=== PATIENT | female | born 1935 | race Caucasian/White ===

== ENCOUNTER 2018-09-06 17:51 | Inpatient (IN) | payer MEDICARE, BC ==
[~2018-09-06] VITALS: Ht 165.1 cm; Wt 97.7 kg
[2018-09-06] MEDS ORDERED: normal saline 1000ML IV soln IVB ONE ×2 (18:15→19:25)
[2018-09-06] MEDS ORDERED: ondansetron/PF 4mg/2ml inj IV ONE (18:15)
[2018-09-06 18:53] LABS: PARTIAL THROMBOPLASTIN TIME 25 SECONDS (22-32); PROTHROMBIN TIME 10.1 SECONDS (9.0-12.0)
[2018-09-06 18:56] LABS: ALANINE AMINOTRANSFERASE 21 U/L (12-78); ALBUMIN 3.7 G/DL (3.4-5.0); ALBUMIN/GLOBULIN RATIO 0.9 (1.1-1.5); ALKALINE PHOSPHATASE 69 IU/L (46-116); ANION GAP 19 (8-16); ASPARTATE AMINO TRANSFERASE 32 U/L (10-37); BILIRUBIN,TOTAL 0.3 MG/DL (0.1-1.0); BLOOD UREA NITROGEN 27 MG/DL (7-18); BUN/CREATININE RATIO 20.6 (6.6-38.0); CALCIUM 9.1 MG/DL (8.5-10.1); CHLORIDE 98 MMOL/L (99-107); CREATININE 1.31 MG/DL (0.40-0.90); GLUCOSE 185 MG/DL (70-104); POTASSIUM 3.4 MMOL/L (3.5-5.1); SODIUM 138 MMOL/L (135-145); TOTAL CARBON DIOXIDE 21.4 MMOL/L (24-32); TOTAL PROTEIN 7.7 G/DL (6.4-8.2); eGFR 39 ML/MIN
[2018-09-06 18:57] LABS: BASOPHILS % (AUTO) 0.3 % (0-1); EOSINOPHILS # (AUTO) 0.2 X10'3 (0-0.9); EOSINOPHILS % (AUTO) 1.7 % (0-6); HEMATOCRIT 40.7 % (35.0-45.0); HEMOGLOBIN 13.2 g/dl (12.0-16.0); LYMPHOCYTES # (AUTO) 2.5 X10'3 (1.1-4.8); MEAN CORPUSCULAR HEMOGLOBIN 27.6 PG (27.0-31.0); MEAN CORPUSCULAR HGB CONC 32.5 % (33.0-36.5); MEAN CORPUSCULAR VOLUME 85.1 FL (78-98); MEAN PLATELET VOLUME 9.4 FL (7.4-10.4); MONOCYTES # (AUTO) 0.6 X10'3 (0-0.9); MONOCYTES % (AUTO) 5.6 % (2-12); NEUTROPHILS # (AUTO) 7.4 X10'3 (1.8-7.7); NEUTROPHILS % (AUTO) 69.4 % (42-75); PLATELET COUNT 320 X10'3 (140-440); RED BLOOD COUNT 4.78 X10'6 (4.20-5.60); RED CELL DISTRIBUTION WIDTH 14.4 % (11.5-14.5); WHITE BLOOD COUNT 10.7 X10'3 (4.5-11.0)
[2018-09-06 19:02] LABS: MAGNESIUM 1.9 MG/DL (1.5-2.4)
[2018-09-06 19:03] LABS: TROPONIN I 0.62 NG/ML (0.0-0.05)
[2018-09-06] MEDS ORDERED: enoxaparin 100mg/ml syringe SUBCUT ONE (19:05)
[2018-09-06] MEDS ORDERED: aspirin 325mg tablet PO ONE (19:05)
[2018-09-06] MEDS ORDERED: diphenhydrAMINE 50 mg/ml inj IV ONE (19:40)
[2018-09-06] MEDS ORDERED: metoclopramide 5 mg/ml inj IV ONE (19:40)
[2018-09-06 19:41] LABS: CLARITY,URINE CLEAR (Clear); COLOR,URINE YELLOW (Yellow); GLUCOSE, URINE NEGATIVE (Neg); KETONES,URINE >=80 mg/dl (Neg); LEUKOCYTE ESTERASE ,URINE NEGATIVE (Neg); NITRITES, URINE NEGATIVE (Neg); OCCULT BLOOD,URINE SMALL (Neg); PROTEIN,URINE TRACE mg/dl (Neg); UA COLLECTION TYPE STRAIGHT CATH; UROBILINOGEN,URINE 0.2 E.U/dL (0.2-1.0)
[2018-09-06] MEDS ORDERED: LISI1TAB9 PO (19:42)
[2018-09-06 20:01] LABS: BACTERIA,URINE NONE SEEN /HPF (Neg); RBC,URINE 0-2 /HPF (0-2); WBC,URINE NONE SEEN /HPF (0-4)
[2018-09-06 20:02] LABS: MUCUS STRANDS NONE SEEN /LPF (Neg); SQUAMOUS EPITHELIAL CELL,UR FEW /LPF (FEW); TRANSITIONAL EPI CELLS,URINE FEW /HPF
[2018-09-06 20:49] LABS: D-DIMER 4.05 MG/L FEU (0-0.50)
[2018-09-06] MEDS ORDERED: iohexol 350MG/ML 100ml bottle IV ONE (21:07)
[2018-09-06] MEDS ORDERED: morphine 2 MG/ML inj. syringe IV ONE (21:55)
[2018-09-06] MEDS ORDERED: ondansetron/PF 4mg/2ml inj IV PRN (23:30)
[2018-09-06] MEDS ORDERED: mag hydrox/Alum hydrox/simeth 30ml oral suspension PO PRN (23:30)
[2018-09-06] MEDS ORDERED: acetaminophen 325mg tablet PO PRN (23:30)
[2018-09-06] MEDS ORDERED: HYDROcodone/acetaminophen 10/325mg tab PO PRN (23:30)
[2018-09-06] MEDS ORDERED: HYDROcodone/acetaminophen 5mg/325mg tablet PO PRN (23:30)
[2018-09-06] MEDS ORDERED: magnesium hydroxide 30ml (MOM) UD suspension PO PRN (23:30)
[2018-09-06] MEDS ORDERED: heparin 25,000 UNIT/250ml bag 250 ML IV SCH (23:31)
[2018-09-06] MEDS ORDERED: heparin 10,000 units/1 ML INJ IV PRN (23:35)
[2018-09-06] MEDS ORDERED: metoprolol tartrate 1mg/ml inj IV ONE (23:35)
[2018-09-06] MEDS ORDERED: heparin 10,000 units/1 ML INJ IV ONE (23:35)
[2018-09-07] MEDS: normal saline 1000ml 1,000 ML IV SCH ×2 (00:05→19:36)
[2018-09-07 00:48] LABS: BASOPHILS % (AUTO) 0 % (0-1); EOSINOPHILS # (AUTO) 0.2 X10'3 (0-0.9); EOSINOPHILS % (AUTO) 1.7 % (0-6); HEMATOCRIT 39.1 % (35.0-45.0); HEMOGLOBIN 12.8 g/dl (12.0-16.0); LYMPHOCYTES # (AUTO) 0.8 X10'3 (1.1-4.8); LYMPHOCYTES % (AUTO) 5.5 % (21-51); MEAN CORPUSCULAR HGB CONC 32.7 % (33.0-36.5); MEAN CORPUSCULAR VOLUME 85.6 FL (78-98); MEAN PLATELET VOLUME 9.4 FL (7.4-10.4); MONOCYTES # (AUTO) 0.5 X10'3 (0-0.9); MONOCYTES % (AUTO) 3.5 % (2-12); NEUTROPHILS # (AUTO) 12.8 X10'3 (1.8-7.7); NEUTROPHILS % (AUTO) 89.3 % (42-75); PLATELET COUNT 288 X10'3 (140-440); RED BLOOD COUNT 4.57 X10'6 (4.20-5.60); RED CELL DISTRIBUTION WIDTH 14.2 % (11.5-14.5); WHITE BLOOD COUNT 14.3 X10'3 (4.5-11.0)
--- NOTE | 2018-09-07 01:49 | NUR ---
placed on hospital bed
[2018-09-07 04:35] VITALS: BP 122/70
--- NOTE | 2018-09-07 04:35 | NUR ---
pt arrived from ER in stable condition, arrived via hospital bed, VS taken and stable, no c/o chest pain at this time, currently on 2L NC, A&O. pt educated application analyst light use and not to get out of bed without assistance. all belongings accompanied pt and at bedside. will review orders and implement as necessary.
[2018-09-07 05:02] LABS: ALANINE AMINOTRANSFERASE 21 U/L (12-78); ALBUMIN 2.9 G/DL (3.4-5.0); ALBUMIN/GLOBULIN RATIO 0.7 (1.1-1.5); ALKALINE PHOSPHATASE 71 IU/L (46-116); ANION GAP 14 (8-16); ASPARTATE AMINO TRANSFERASE 37 U/L (10-37); BILIRUBIN,TOTAL 0.3 MG/DL (0.1-1.0); BLOOD UREA NITROGEN 26 MG/DL (7-18); BUN/CREATININE RATIO 21.7 (6.6-38.0); CHLORIDE 102 MMOL/L (99-107); GLUCOSE 135 MG/DL (70-104); POTASSIUM 4.5 MMOL/L (3.5-5.1); SODIUM 140 MMOL/L (135-145); TOTAL CARBON DIOXIDE 24.5 MMOL/L (24-32); TOTAL PROTEIN 6.9 G/DL (6.4-8.2); eGFR 43 ML/MIN
[2018-09-07 05:06] LABS: CHOL/HDL RATIO 3.1 (0.00-4.99); CHOLESTEROL 274 MG/DL (0-200); HDL CHOLESTEROL 87 MG/DL (35-60); LDL CHOLESTEROL 180 MG/DL (50-100); TRIGLYCERIDES 37 MG/DL (20-135)
[2018-09-07 05:29] LABS: BASOPHILS % (AUTO) 0 % (0-1); EOSINOPHILS # (AUTO) 0.1 X10'3 (0-0.9); EOSINOPHILS % (AUTO) 1.5 % (0-6); LYMPHOCYTES # (AUTO) 0.8 X10'3 (1.1-4.8); LYMPHOCYTES % (AUTO) 8.6 % (21-51); MEAN CORPUSCULAR HEMOGLOBIN 27.7 PG (27.0-31.0); MEAN CORPUSCULAR HGB CONC 32.5 % (33.0-36.5); MEAN CORPUSCULAR VOLUME 85.4 FL (78-98); MEAN PLATELET VOLUME 9.6 FL (7.4-10.4); MONOCYTES # (AUTO) 0.4 X10'3 (0-0.9); MONOCYTES % (AUTO) 4.5 % (2-12); NEUTROPHILS # (AUTO) 8.4 X10'3 (1.8-7.7); NEUTROPHILS % (AUTO) 85.4 % (42-75); PLATELET COUNT 295 X10'3 (140-440); RED BLOOD COUNT 4.68 X10'6 (4.20-5.60); RED CELL DISTRIBUTION WIDTH 14.6 % (11.5-14.5); WHITE BLOOD COUNT 9.8 X10'3 (4.5-11.0)
[2018-09-07 05:29] LABS: TOTAL CELLS COUNTED 100
[2018-09-07 05:30] LABS: PLATELET ESTIMATE NORMAL
--- NOTE | 2018-09-07 05:30 | NUR ---
spoke with Dr Alex re pt's next trop back at 4.75, pt asymptomatic and no chest pain, VSS and currently on heparin gtt. no new orders at this time. will keep pt NPO should they decide to pursue PCI today.
[2018-09-07 06:00] VITALS: BP 134/68
--- NOTE | 2018-09-07 06:30 | NUR ---
Patient in room PCU 3016. I have received report from Jennifer MCGHEE and had the opportunity to ask questions and assume patient care. Patient resting comfortably in bed. Patient complaining of nausea. Will continue to monitor.
--- NOTE | 2018-09-07 06:31 | NUR ---
Problems reprioritized. Patient report given, questions answered & plan of care reviewed with Cookie MCGHEE.
[2018-09-07] MEDS ORDERED: metoprolol tartrate 50mg tablet PO SCH (08:00)
--- NOTE | 2018-09-07 08:27 | NUR ---
Paged Dr. Oneill: PAGER ID: [phone] MESSAGE: Cookie [facility] [id number] RE: Kalli Sandoval [id number]. Critical lab PTT: 125. Per protocol stopped heparin gtt. Will resume in 2 hours per.
[2018-09-07] MEDS ORDERED: aspirin 325mg tablet PO SCH (08:30)
[2018-09-07] MEDS ORDERED: nitroGLYCERIN 0.4mg SUBLingual tab SL PRN (08:45)
[2018-09-07] MEDS ORDERED: metoprolol tartrate 12.5mg (1/2 tablet) PO SCH (08:49)
[2018-09-07 10:12] LABS: OCCULT BLOOD STOOL NEGATIVE (Neg)
[2018-09-07 10:54] LABS: CLARITY,URINE TURBID (Clear); COLOR,URINE RED (Yellow); UA COLLECTION TYPE FOLEY CATH
[2018-09-07 11:00] VITALS: BP 106/51
--- NOTE | 2018-09-07 11:00 | NUR ---
Rosado catheter discontinued. Patient tolerated procedure well.
--- NOTE | 2018-09-07 11:01 | NUR ---
Paged Dr. Oneill: PAGER ID: [phone] MESSAGE: Cookie Favio [phone] RE: Kalli Sandoval [id number]. Critical lab. Troponin 12 hour: 5.34.
[2018-09-07 11:02] LABS: MUCUS STRANDS NONE SEEN /LPF (Neg); SQUAMOUS EPITHELIAL CELL,UR FEW /LPF (FEW); TRANSITIONAL EPI CELLS,URINE MODERATE /HPF
[2018-09-07 11:03] LABS: BACTERIA,URINE FEW /HPF (Neg); RBC,URINE TNTC /HPF (0-2); WBC,URINE 0-4 /HPF (0-4)
--- NOTE | 2018-09-07 11:33 | NUR ---
Paged Dr. Oneill: PAGER ID: [phone] MESSAGE: Cookie [facility] [phone] RE: Jaime Mahan [id number]. Patient has been NPO do you want a diet ordered? Per Martha De La Cruz do you want to repeat a lactic? Please advise. Thank you.
[2018-09-07] MEDS: atorvastatin 20mg tablet PO SCH (12:33)
[2018-09-07] MEDS: pantoprazole 40 MG vial IV SCH (13:37)
[2018-09-07 15:00] VITALS: BP 116/60
--- NOTE | 2018-09-07 15:50 | NUR ---
Paged Dr. Oneill: PAGER ID: [phone] MESSAGE: Cookie [facility] [phone]. RE: Kalli Sandoval [id number]. Patient voided. Urine specimen is bedside for you to look at. Thank you.
[2018-09-07] MEDS: metroNIDAZOLE-Flagyl 500mg/NS 100 ML IV SCH (16:02)
--- NOTE | 2018-09-07 18:20 | NUR ---
Patient in room PCU 3016. I have received report from Cookie MCGHEE and had the opportunity to ask questions and assume patient care.
--- NOTE | 2018-09-07 18:30 | NUR ---
Problems reprioritized. Patient report given, questions answered & plan of care reviewed with Samir MCGHEE.
[2018-09-07 18:55] LABS: BASOPHILS % (AUTO) 0.3 % (0-1); EOSINOPHILS % (AUTO) 0 % (0-6); HEMATOCRIT 39.8 % (35.0-45.0); HEMOGLOBIN 12.9 g/dl (12.0-16.0); LYMPHOCYTES # (AUTO) 1.6 X10'3 (1.1-4.8); LYMPHOCYTES % (AUTO) 11.1 % (21-51); MEAN CORPUSCULAR HEMOGLOBIN 27.8 PG (27.0-31.0); MEAN CORPUSCULAR HGB CONC 32.4 % (33.0-36.5); MEAN CORPUSCULAR VOLUME 85.7 FL (78-98); MEAN PLATELET VOLUME 9.6 FL (7.4-10.4); MONOCYTES # (AUTO) 1.2 X10'3 (0-0.9); MONOCYTES % (AUTO) 8.4 % (2-12); NEUTROPHILS # (AUTO) 11.3 X10'3 (1.8-7.7); NEUTROPHILS % (AUTO) 80.2 % (42-75); PLATELET COUNT 281 X10'3 (140-440); RED BLOOD COUNT 4.65 X10'6 (4.20-5.60); RED CELL DISTRIBUTION WIDTH 14.7 % (11.5-14.5)
[2018-09-07 19:00] VITALS: BP 102/45
[2018-09-07 23:00] VITALS: BP 123/68
[2018-09-08] VITALS (14 sets, daily range): BP systolic 85–120; BP diastolic 41–75
[2018-09-08 01:37] LABS: BASOPHILS # (AUTO) 0.1 X10'3 (0-0.2); BASOPHILS % (AUTO) 0.5 % (0-1); EOSINOPHILS % (AUTO) 0.1 % (0-6); HEMATOCRIT 32.4 % (35.0-45.0); HEMOGLOBIN 10.8 g/dl (12.0-16.0); LYMPHOCYTES # (AUTO) 1.4 X10'3 (1.1-4.8); LYMPHOCYTES % (AUTO) 12.8 % (21-51); MEAN CORPUSCULAR HEMOGLOBIN 28.6 PG (27.0-31.0); MEAN CORPUSCULAR HGB CONC 33.4 % (33.0-36.5); MEAN CORPUSCULAR VOLUME 85.6 FL (78-98); MONOCYTES # (AUTO) 0.8 X10'3 (0-0.9); MONOCYTES % (AUTO) 7.5 % (2-12); NEUTROPHILS # (AUTO) 8.3 X10'3 (1.8-7.7); NEUTROPHILS % (AUTO) 79.1 % (42-75); PLATELET COUNT 227 X10'3 (140-440); RED BLOOD COUNT 3.78 X10'6 (4.20-5.60); RED CELL DISTRIBUTION WIDTH 13.7 % (11.5-14.5); WHITE BLOOD COUNT 10.6 X10'3 (4.5-11.0)
[2018-09-08] MEDS: metroNIDAZOLE-Flagyl 500mg/NS 100 ML IV SCH ×3 (01:59→19:20)
[2018-09-08 05:56] LABS: BASOPHILS # (AUTO) 0.2 X10'3 (0-0.2); BASOPHILS % (AUTO) 1.5 % (0-1); EOSINOPHILS # (AUTO) 0.1 X10'3 (0-0.9); EOSINOPHILS % (AUTO) 1.1 % (0-6); HEMATOCRIT 33.2 % (35.0-45.0); HEMOGLOBIN 10.7 g/dl (12.0-16.0); LYMPHOCYTES # (AUTO) 1.7 X10'3 (1.1-4.8); LYMPHOCYTES % (AUTO) 16.2 % (21-51); MEAN CORPUSCULAR HEMOGLOBIN 27.4 PG (27.0-31.0); MEAN CORPUSCULAR HGB CONC 32.2 % (33.0-36.5); MEAN PLATELET VOLUME 8.8 FL (7.4-10.4); MONOCYTES # (AUTO) 1.1 X10'3 (0-0.9); MONOCYTES % (AUTO) 10.4 % (2-12); NEUTROPHILS # (AUTO) 7.5 X10'3 (1.8-7.7); NEUTROPHILS % (AUTO) 70.8 % (42-75); PLATELET COUNT 223 X10'3 (140-440); RED BLOOD COUNT 3.91 X10'6 (4.20-5.60); RED CELL DISTRIBUTION WIDTH 14.5 % (11.5-14.5); WHITE BLOOD COUNT 10.6 X10'3 (4.5-11.0)
[2018-09-08 06:07] LABS: ALANINE AMINOTRANSFERASE 19 U/L (12-78); ALBUMIN 2.4 G/DL (3.4-5.0); ALBUMIN/GLOBULIN RATIO 0.7 (1.1-1.5); ALKALINE PHOSPHATASE 53 IU/L (46-116); ANION GAP 10 (8-16); ASPARTATE AMINO TRANSFERASE 36 U/L (10-37); BILIRUBIN,TOTAL 0.5 MG/DL (0.1-1.0); BLOOD UREA NITROGEN 23 MG/DL (7-18); BUN/CREATININE RATIO 20.9 (6.6-38.0); CALCIUM 7.5 MG/DL (8.5-10.1); CHLORIDE 106 MMOL/L (99-107); GLUCOSE 115 MG/DL (70-104); POTASSIUM 3.5 MMOL/L (3.5-5.1); SODIUM 141 MMOL/L (135-145); TOTAL CARBON DIOXIDE 24.9 MMOL/L (24-32); TOTAL PROTEIN 5.7 G/DL (6.4-8.2); eGFR 48 ML/MIN
[2018-09-08 06:40] LABS: TROPONIN I 2.63 NG/ML (0.0-0.05)
[2018-09-08] MEDS: aspirin 81mg tablet.DR PO SCH (08:04)
[2018-09-08] MEDS: atorvastatin 20mg tablet PO SCH (08:05)
[2018-09-08] MEDS: metoprolol tartrate 25mg tablet PO SCH ×2 (08:05→19:19)
[2018-09-08] MEDS: pantoprazole 40 MG vial IV SCH (08:06)
[2018-09-08] MEDS: normal saline 1000ml 1,000 ML IV SCH (09:54)
[2018-09-08] MEDS ORDERED: midazolam 2 mg/2 ml injection ONE (15:59)
[2018-09-08] MEDS ORDERED: fentaNYL/PF 50MCG/1 ML 2ML syringe ONE (16:00)
[2018-09-08] MEDS ORDERED: LIDOcaine 1% (10mg/ml)w/preservative injection 20ml MDV ONE (16:00)
[2018-09-08] MEDS ORDERED: iohexol 350MG/ML 100ml bottle IV ONE (16:00)
[2018-09-08] MEDS ORDERED: OXAZEpam 15mg capsule PO PRN (17:45)
[2018-09-08] MEDS ORDERED: proCHLORperazine 10 MG/2 ml inj IV PRN (17:45)
--- NOTE | 2018-09-08 18:20 | NUR ---
Problems reprioritized. Patient report given, questions answered & plan of care reviewed with Madelin MCGHEE.
--- NOTE | 2018-09-08 18:37 | NUR ---
Patient in room PCU 3016. I have received report from zaina rosas and had the opportunity to ask questions and assume patient care. Addendum: 09/08/18 at 1838 by Germán Lam RN site appears clean dry intact pulses present leandro
--- NOTE | 2018-09-08 18:39 | NUR ---
Patient in room PCU 3016. I have received report from Samir MCGHEE and had the opportunity to ask questions and assume patient care.
[2018-09-08] MEDS ORDERED: LISI1TAB13 PO (19:40)
--- NOTE | 2018-09-08 20:58 | NUR ---
Consulted pharmacy by telephone regarding late administration of Flagyl. Medication given according to rule of halves. Midnight medication dose will still be given at the usual time.
[2018-09-09] MEDS: normal saline 1000ml 1,000 ML IV SCH (00:12)
[2018-09-09] MEDS: metroNIDAZOLE-Flagyl 500mg/NS 100 ML IV SCH ×2 (00:15→07:18)
[2018-09-09 03:00] VITALS: BP 105/43
--- NOTE | 2018-09-09 03:18 | NUR ---
Vital signs measured at 0245. SBP below 100 noted. O2 sat below 90% noted. I placed patient on 2L O2 via NC, sats increased to 93%. Patient given 200 mL fluid bolus by set up and charger - SBP increased to 105. Patient now drinking juice and resting comfortably.
[2018-09-09 03:58] VITALS: BP 112/50
[2018-09-09 05:58] LABS: BASOPHILS # (AUTO) 0.1 X10'3 (0-0.2); BASOPHILS % (AUTO) 1.1 % (0-1); EOSINOPHILS % (AUTO) 0.3 % (0-6); HEMATOCRIT 34.3 % (35.0-45.0); LYMPHOCYTES # (AUTO) 1.4 X10'3 (1.1-4.8); MEAN CORPUSCULAR HEMOGLOBIN 27.8 PG (27.0-31.0); MEAN CORPUSCULAR VOLUME 86.8 FL (78-98); MEAN PLATELET VOLUME 8.4 FL (7.4-10.4); MONOCYTES # (AUTO) 0.9 X10'3 (0-0.9); MONOCYTES % (AUTO) 9.3 % (2-12); NEUTROPHILS # (AUTO) 7.6 X10'3 (1.8-7.7); NEUTROPHILS % (AUTO) 75.3 % (42-75); PLATELET COUNT 223 X10'3 (140-440); RED BLOOD COUNT 3.95 X10'6 (4.20-5.60); RED CELL DISTRIBUTION WIDTH 13.7 % (11.5-14.5)
--- NOTE | 2018-09-09 06:09 | NUR ---
Problems reprioritized. Patient report given, questions answered & plan of care reviewed with Samir MCGHEE. Addendum: 09/09/18 at 0611 by Germán Lam RN patient awake in no distress, bed alarm on. right groin site clean dry and intact, no hematoma/soft
--- NOTE | 2018-09-09 06:10 | NUR ---
Patient in room PCU 3016. I have received report from Madelin MCGHEE and had the opportunity to ask questions and assume patient care.
[2018-09-09 06:23] LABS: ALANINE AMINOTRANSFERASE 22 U/L (12-78); ALBUMIN 2.5 G/DL (3.4-5.0); ALBUMIN/GLOBULIN RATIO 0.7 (1.1-1.5); ALKALINE PHOSPHATASE 58 IU/L (46-116); ANION GAP 10 (8-16); ASPARTATE AMINO TRANSFERASE 33 U/L (10-37); BILIRUBIN,TOTAL 0.4 MG/DL (0.1-1.0); BLOOD UREA NITROGEN 17 MG/DL (7-18); BUN/CREATININE RATIO 16.7 (6.6-38.0); CALCIUM 7.8 MG/DL (8.5-10.1); CHLORIDE 105 MMOL/L (99-107); CREATININE 1.02 MG/DL (0.40-0.90); GLUCOSE 121 MG/DL (70-104); POTASSIUM 3.4 MMOL/L (3.5-5.1); SODIUM 140 MMOL/L (135-145); TOTAL CARBON DIOXIDE 25.3 MMOL/L (24-32); eGFR 52 ML/MIN
--- NOTE | 2018-09-09 06:27 | NUR ---
orientee documentation: I have reviewed and agree with all interventions, assessments performed and documented by shahid rosas.
--- NOTE | 2018-09-09 06:27 | NUR ---
[facility] Medication Administration: For this medication-pass time frame, all medication were reviewed, dispensed, administered and documented per hospital policy by shahid rosas.
[2018-09-09 07:00] VITALS: BP 108/65
[2018-09-09 07:17] VITALS: BP_SYST 108
[2018-09-09] MEDS: metoprolol tartrate 25mg tablet PO SCH (07:17)
[2018-09-09] MEDS: atorvastatin 20mg tablet PO SCH (07:17)
[2018-09-09] MEDS: pantoprazole 40 MG vial IV SCH (07:18)
[2018-09-09] MEDS ORDERED: amiodarone 200mg tablet PO SCH (08:00)
[2018-09-09] MEDS: aspirin 81mg tablet.DR PO SCH (09:25)
--- NOTE | 2018-09-09 10:45 | NUR ---
Spoke with Martha De La Cruz NP Spoke with Martha De La Cruz NP who informed me that Medicare will cover Eliquis and we can provide pt with a coupon for Eliquis. Martha De La Cruz NP recommended updating Dr. Mai NOVA with this information in case he preferred to prescribe Eliquis outpatient instead of Prodaxa.
--- NOTE | 2018-09-09 10:55 | NUR ---
Paged Dr. Oneill MESSAGE: Samir Alfonso RN [phone] Kalli Sandoval: Otto De La Cruz [employer], Medicare will cover Eliquis and we can provide pt a coupon if you would prefer Eliquis instead of Xarelto. Thank you.
--- NOTE | 2018-09-09 11:02 | NUR ---
Spoke with Dr. Oneill. Spoke with Dr. Oneill regarding prescribing Eliquis or Xarelto on discharge. Dr. Oneill informed me he preferred Prodaxa and not Xarelto. If patient's insurance doesn't cover Prodaxa, we will proceed with Eliquis.
[2018-09-09] MEDS ORDERED: AMIO200T40 PO (11:26)
[2018-09-09] MEDS ORDERED: NITR0.4T51 SL (11:26)
[2018-09-09] MEDS ORDERED: APIX5TAB3 PO (11:26)
[2018-09-09] MEDS ORDERED: METR-159 PO (11:26)
[2018-09-09] MEDS ORDERED: METO25TA6 PO (11:26)
[2018-09-09] MEDS ORDERED: ASPI-1071 PO (11:26)
[2018-09-09] MEDS ORDERED: ATOR40TA PO (11:26)
[2018-09-09] MEDS ORDERED: apixaban 5mg tablet PO SCH (11:30)
--- NOTE | 2018-09-09 14:10 | NUR ---
Patient discharged. Patient discharged home with daughter. Discharge packet provided to patient and discussed with RN. Patient received all new prescriptions via [facility] bedside delivery service. IV discontinued prior to leaving, catheter intact. Telemetry leads removed from patient and tele box returned to [facility]. Patient changed out of gowns into personal clothes and left via wheelchair, escorted by RN. Patient left in personal vehicle driven by patient's daughter. All questions and concerns were addressed with primary RN.
[2018-09-10] MEDS ORDERED: pantoprazole 40mg Tablet.DR PO SCH (07:30)
== END 2018-09-09 14:18 | disposition home or self-care (01) | DRG 280 ==
LOC: ER 17:51 → ED HOLD 23:27 → PCU 3S 09-07 04:35
PROVIDERS: ADMIT Internal Medicine; ATTEND Internal Medicine
PROC: B32T1ZZ Computerized Tomography (CT Scan) of Left Pulmonary Artery using Low Osmolar Contrast (ICD-10-PCS; 2018-09-06)
PROC: B3201ZZ Computerized Tomography (CT Scan) of Thoracic Aorta using Low Osmolar Contrast (ICD-10-PCS; 2018-09-06)
PROC: B32S1ZZ Computerized Tomography (CT Scan) of Right Pulmonary Artery using Low Osmolar Contrast (ICD-10-PCS; 2018-09-06)
PROC: 4A023N7 Measurement of Cardiac Sampling and Pressure, Left Heart, Percutaneous Approach (ICD-10-PCS; principal; 2018-09-08)
PROC: B2111ZZ Fluoroscopy of Multiple Coronary Arteries using Low Osmolar Contrast (ICD-10-PCS; 2018-09-08)
PROC: B2151ZZ Fluoroscopy of Left Heart using Low Osmolar Contrast (ICD-10-PCS; 2018-09-08)
DX: I21.4 Non-ST elevation (NSTEMI) myocardial infarction (principal); I50.21 Acute systolic (congestive) heart failure; E87.2 Acidosis; I48.0 Paroxysmal atrial fibrillation; I11.0 Hypertensive heart disease with heart failure; K52.9 Noninfective gastroenteritis and colitis, unspecified; E78.5 Hyperlipidemia, unspecified; Z60.2 Problems related to living alone; R31.9 Hematuria, unspecified; E86.0 Dehydration; I09.9 Rheumatic heart disease, unspecified; R79.1 Abnormal coagulation profile; T45.515A Adverse effect of anticoagulants, initial encounter; Z79.82 Long term (current) use of aspirin; Z80.8 Family history of malignant neoplasm of other organs or systems; Z82.61 Family history of arthritis; Z79.899 Other long term (current) drug therapy; Y92.238 Other place in hospital as the place of occurrence of the external cause
CPT/HCPCS: 36415; 71045; 71275; 74176; 80053; 80061; 81001; 82272; 83036; 83605; 83735; 83880; 84145; 84484; 85025; 85379; 85610; 85730; 87040; 87070; 87502; 87503; 93005; 93306; 93458; 96361; 96372; 96374; 96375; 99152; 99285; A4620; A6257; C1769; C9113; G0378; J1200; J1644; J1650; J2001; J2250; J2270; J2405; J2765; J3010; J3490; J7030; Q9967